=== PATIENT | male | born 1960 | race Caucasian/White ===

== ENCOUNTER 2018-09-23 09:57 | Emergency (ER) | payer OTHER ==
[2018-09-23 10:37] LABS: ADD MAN DIFF? NO
[2018-09-23 10:39] LABS: WHITE BLOOD COUNT 7.3 10^3/ul (4.8-10.8)
[2018-09-23 10:39] LABS: BASOPHIL # 0.1 10^3/ul (0.0-0.1); BASOPHILS % 1.1 % (0.0-2.0); EOSINOPHILS # 0.2 10^3/ul (0.0-0.5); HEMATOCRIT 37.7 % (42.0-52.0); HEMOGLOBIN 12.7 g/dl (14.0-18.0); LYMPHOCYTES # 1.1 10^3/ul (0.8-2.9); LYMPHOCYTES % 14.3 % (15.0-51.0); MEAN CORPUSCULAR HEMOGLOBIN 28.8 pg (29.0-33.0); MEAN CORPUSCULAR HGB CONC 33.7 g/dl (32.0-37.0); MEAN CORPUSCULAR VOLUME 85.5 fl (82.0-101.0); MEAN PLATELET VOLUME 11.4 fl (7.4-10.4); MONOCYTE # 0.6 10^3/ul (0.3-0.9); MONOCYTES % 7.5 % (0.0-11.0); NEUTROPHIL # 5.5 10^3/ul (1.6-7.5); NEUTROPHILS % 74.7 % (39.0-77.0); PLATELET COUNT 176 10^3/UL (140-415); RED BLOOD COUNT 4.41 10^6/ul (4.70-6.10); RED CELL DISTRIBUTION WIDTH 14.5 % (11.5-14.5)
[2018-09-23 10:56] LABS: ANION GAP 4 (5-13); BLOOD UREA NITROGEN 22 mg/dl (7-20); CALCIUM 9.2 mg/dl (8.4-10.2); CARBON DIOXIDE 28 mmol/L (21-31); CHLORIDE 106 mmol/L (97-110); CREATININE 0.95 mg/dl (0.61-1.24); Estimated GFR > 60 mL/min (>60); GLUCOSE 102 mg/dl (70-220); POTASSIUM 3.7 mmol/L (3.5-5.1); SODIUM 138 mmol/L (135-144)
[2018-09-23 11:55] LABS: TROPONIN-I < 0.012 ng/ml (0.000-0.120)
== END 2018-09-23 16:33 | disposition home or self-care (01) ==
LOC: E/R 09:57
DX: R42 Dizziness and giddiness (principal); I10 Essential (primary) hypertension
CPT/HCPCS: 80048; 84484; 85025; 93005; 99284-25

== ENCOUNTER 2018-10-01 07:11 | Emergency (ER) | payer OTHER ==
[2018-10-01] MEDS: IBUPROFEN 800 MG TAB PO (07:44)
== END 2018-10-01 08:54 | disposition home or self-care (01) ==
LOC: FTE 07:11
DX: R22.0 Localized swelling, mass and lump, head (principal); I10 Essential (primary) hypertension
CPT/HCPCS: 70486; 99284-25

== ENCOUNTER 2018-10-05 21:52 | Inpatient (IN) | payer OTHER ==
[2018-10-05 22:19] LABS: ADD MAN DIFF? NO
[2018-10-05 22:20] LABS: BASOPHIL # 0.1 10^3/ul (0.0-0.1); BASOPHILS % 0.6 % (0.0-2.0); EOSINOPHILS # 0.6 10^3/ul (0.0-0.5); EOSINOPHILS % 5.4 % (0.0-7.0); HEMATOCRIT 36.9 % (42.0-52.0); HEMOGLOBIN 12.6 g/dl (14.0-18.0); LYMPHOCYTES # 1.2 10^3/ul (0.8-2.9); LYMPHOCYTES % 11.9 % (15.0-51.0); MEAN CORPUSCULAR HEMOGLOBIN 29.3 pg (29.0-33.0); MEAN CORPUSCULAR HGB CONC 34.1 g/dl (32.0-37.0); MEAN CORPUSCULAR VOLUME 85.8 fl (82.0-101.0); MEAN PLATELET VOLUME 11.5 fl (7.4-10.4); MONOCYTE # 0.9 10^3/ul (0.3-0.9); MONOCYTES % 9.1 % (0.0-11.0); NEUTROPHIL # 7.4 10^3/ul (1.6-7.5); NEUTROPHILS % 72.7 % (39.0-77.0); PLATELET COUNT 178 10^3/UL (140-415); RED CELL DISTRIBUTION WIDTH 14.4 % (11.5-14.5)
[2018-10-05 22:20] LABS: WHITE BLOOD COUNT 10.2 10^3/ul (4.8-10.8)
[2018-10-05] MEDS: morphine 4 MG/ML VIAL IV (22:20)
[2018-10-05] MEDS: ONDANSETRON 4 MG INJ IV (22:20)
[2018-10-05] MEDS: ASPIRIN 325 MG TAB PO (22:21)
[2018-10-05] MEDS: NITROGLYCERIN 2% 1 GM OINT PKT TD (22:21)
[2018-10-05 22:40] LABS: ANION GAP 5 (5-13); BLOOD UREA NITROGEN 21 mg/dl (7-20); CARBON DIOXIDE 28 mmol/L (21-31); CHLORIDE 107 mmol/L (97-110); CREATININE 0.92 mg/dl (0.61-1.24); Estimated GFR > 60 mL/min (>60); GLUCOSE 110 mg/dl (70-220); POTASSIUM 3.4 mmol/L (3.5-5.1); SODIUM 140 mmol/L (135-144)
[2018-10-05 22:52] LABS: TROPONIN-I < 0.012 ng/ml (0.000-0.120)
[2018-10-05] MEDS ORDERED: ONDANSETRON 4 MG INJ IV (23:30)
[2018-10-06] MEDS ORDERED: ONDANSETRON 4 MG INJ IV (03:00)
[2018-10-06] MEDS ORDERED: NITROGLYCERIN (SL) 0.4 MG TAB SL (03:00)
[2018-10-06 05:22] LABS: ADD MAN DIFF? NO
[2018-10-06 05:34] LABS: BASOPHIL # 0.1 10^3/ul (0.0-0.1); BASOPHILS % 0.8 % (0.0-2.0); EOSINOPHILS # 0.7 10^3/ul (0.0-0.5); EOSINOPHILS % 8.7 % (0.0-7.0); HEMATOCRIT 33.5 % (42.0-52.0); HEMOGLOBIN 11.3 g/dl (14.0-18.0); LYMPHOCYTES # 1.4 10^3/ul (0.8-2.9); LYMPHOCYTES % 16.5 % (15.0-51.0); MEAN CORPUSCULAR HEMOGLOBIN 29.4 pg (29.0-33.0); MEAN CORPUSCULAR HGB CONC 33.7 g/dl (32.0-37.0); MEAN PLATELET VOLUME 11.8 fl (7.4-10.4); MONOCYTE # 0.7 10^3/ul (0.3-0.9); MONOCYTES % 8.8 % (0.0-11.0); NEUTROPHIL # 5.5 10^3/ul (1.6-7.5); NEUTROPHILS % 64.8 % (39.0-77.0); PLATELET COUNT 148 10^3/UL (140-415); RED BLOOD COUNT 3.85 10^6/ul (4.70-6.10); RED CELL DISTRIBUTION WIDTH 14.6 % (11.5-14.5)
[2018-10-06 05:34] LABS: WHITE BLOOD COUNT 8.4 10^3/ul (4.8-10.8)
[2018-10-06 05:46] LABS: HEMOGLOBIN A1C 4.6 % (0-5.9)
[2018-10-06 06:04] LABS: CREATINE KINASE 181 IU/L (23-200)
[2018-10-06 06:16] LABS: CK INDEX 1.8; TROPONIN-I < 0.012 ng/ml (0.000-0.120)
[2018-10-06 06:27] LABS: CK-MB 3.21 ng/ml (0.0-2.4)
[2018-10-06 07:51] LABS: ALANINE AMINOTRANSFERASE 43 IU/L (13-69); ALBUMIN 3.2 g/dl (3.3-4.9); ALBUMIN/GLOBULIN RATIO 1.28; ALKALINE PHOSPHATASE 58 IU/L (42-121); ANION GAP 7 (5-13); ASPARTATE AMINO TRANSFERASE 32 IU/L (15-46); BILIRUBIN,INDIRECT 0.7 mg/dl (0-1.1); BILIRUBIN,TOTAL 0.7 mg/dl (0.2-1.3); BLOOD UREA NITROGEN 20 mg/dl (7-20); CARBON DIOXIDE 31 mmol/L (21-31); CHLORIDE 106 mmol/L (97-110); CHOL/HDL RATIO 4.5 RATIO; CHOLESTEROL 126 mg/dl (100-200); CREATININE 0.87 mg/dl (0.61-1.24); Estimated GFR > 60 mL/min (>60); GLUCOSE 92 mg/dl (70-220); HDL CHOLESTEROL 28 mg/dl (28-71); LDL CHOLESTEROL,CALCULATED 79 mg/dl; POTASSIUM 3.8 mmol/L (3.5-5.1); SODIUM 144 mmol/L (135-144); TOTAL PROTEIN 5.7 g/dl (6.1-8.1); TRIGLYCERIDES 97 mg/dl (0-149)
[2018-10-06] MEDS: ENOXAPARIN 40 MG/0.4 ML SYG SC (09:00)
[2018-10-06] MEDS: ASPIRIN 81 MG TAB PO (09:00)
[2018-10-06 11:14] LABS: CREATINE KINASE 142 IU/L (23-200)
[2018-10-06 11:23] LABS: CK INDEX 1.9; TROPONIN-I < 0.012 ng/ml (0.000-0.120)
[2018-10-06 11:26] LABS: CK-MB 2.72 ng/ml (0.0-2.4)
[2018-10-06] MEDS: traMADol 50 MG TAB PO (12:31)
[2018-10-06] MEDS: ALBUTEROL/IPRATROPIUM (NEB) 3 ML AMP HHN (13:47)
[2018-10-06] MEDS ORDERED: UREA 40% CR 7OZ TOP (14:00)
[2018-10-06] MEDS: UREA 40% CR 7OZ TOP (21:50)
[2018-10-06] MEDS: morphine 2 MG INJ IV (22:00)
[2018-10-07 05:19] LABS: ADD MAN DIFF? NO
[2018-10-07 05:25] LABS: WHITE BLOOD COUNT 7.6 10^3/ul (4.8-10.8)
[2018-10-07 05:25] LABS: BASOPHIL # 0.1 10^3/ul (0.0-0.1); BASOPHILS % 0.7 % (0.0-2.0); EOSINOPHILS # 0.7 10^3/ul (0.0-0.5); EOSINOPHILS % 8.8 % (0.0-7.0); HEMATOCRIT 34.3 % (42.0-52.0); HEMOGLOBIN 11.5 g/dl (14.0-18.0); LYMPHOCYTES # 1.1 10^3/ul (0.8-2.9); LYMPHOCYTES % 14.5 % (15.0-51.0); MEAN CORPUSCULAR HEMOGLOBIN 29.3 pg (29.0-33.0); MEAN CORPUSCULAR HGB CONC 33.5 g/dl (32.0-37.0); MEAN CORPUSCULAR VOLUME 87.5 fl (82.0-101.0); MEAN PLATELET VOLUME 12.4 fl (7.4-10.4); MONOCYTE # 0.5 10^3/ul (0.3-0.9); MONOCYTES % 7.1 % (0.0-11.0); NEUTROPHIL # 5.2 10^3/ul (1.6-7.5); NEUTROPHILS % 68.4 % (39.0-77.0); PLATELET COUNT 134 10^3/UL (140-415); RED BLOOD COUNT 3.92 10^6/ul (4.70-6.10); RED CELL DISTRIBUTION WIDTH 14.6 % (11.5-14.5)
[2018-10-07 05:54] LABS: ANION GAP 5 (5-13); BLOOD UREA NITROGEN 27 mg/dl (7-20); CALCIUM 8.4 mg/dl (8.4-10.2); CARBON DIOXIDE 28 mmol/L (21-31); CHLORIDE 107 mmol/L (97-110); CREATININE 0.88 mg/dl (0.61-1.24); Estimated GFR > 60 mL/min (>60); GLUCOSE 124 mg/dl (70-220); MAGNESIUM 2.3 mg/dl (1.7-2.5); PHOSPHORUS 3.1 mg/dl (2.5-4.9); POTASSIUM 3.5 mmol/L (3.5-5.1); SODIUM 140 mmol/L (135-144)
[2018-10-07] MEDS: ASPIRIN 81 MG TAB PO (08:30)
[2018-10-07] MEDS: ENOXAPARIN 40 MG/0.4 ML SYG SC (08:31)
[2018-10-07] MEDS: UREA 40% CR 7OZ TOP ×2 (08:31→22:07)
[2018-10-07] MEDS: morphine 2 MG INJ IV ×3 (11:53→23:40)
[2018-10-07] MEDS: traMADol 50 MG TAB PO (22:07)
[2018-10-08] MEDS: morphine 2 MG INJ IV ×4 (03:47→22:14)
[2018-10-08] MEDS: ENOXAPARIN 40 MG/0.4 ML SYG SC (08:39)
[2018-10-08] MEDS: ASPIRIN 81 MG TAB PO (08:54)
[2018-10-08] MEDS: UREA 40% CR 7OZ TOP ×2 (13:34→21:00)
[2018-10-08] MEDS: QUETIAPINE 25 MG TAB PO ×2 (16:30→21:00)
[2018-10-08] MEDS: NIFEdipine (XL) 90 MG TAB PO (17:51)
[2018-10-09] MEDS: UREA 40% CR 7OZ TOP ×2 (08:47→21:07)
[2018-10-09] MEDS: ASPIRIN 81 MG TAB PO (08:47)
[2018-10-09] MEDS: traMADol 50 MG TAB PO ×2 (08:48→19:05)
[2018-10-09] MEDS: QUETIAPINE 25 MG TAB PO ×3 (08:48→21:00)
[2018-10-09] MEDS: NIFEdipine (XL) 90 MG TAB PO (08:48)
[2018-10-09] MEDS: ENOXAPARIN 40 MG/0.4 ML SYG SC (08:48)
[2018-10-09] MEDS: NACL 0.9% 3 ML SYG IV (08:49)
[2018-10-09] MEDS: GUAIFENESIN 20 MG/ML 5ML CUP PO (16:24)
[2018-10-10] MEDS: traMADol 50 MG TAB PO (07:54)
[2018-10-10] MEDS: ENOXAPARIN 40 MG/0.4 ML SYG SC (08:41)
[2018-10-10] MEDS: QUETIAPINE 25 MG TAB PO ×3 (08:41→21:00)
[2018-10-10] MEDS: ASPIRIN 81 MG TAB PO (08:49)
[2018-10-10] MEDS: NIFEdipine (XL) 90 MG TAB PO (08:49)
[2018-10-10] MEDS: UREA 40% CR 7OZ TOP ×2 (08:54→21:00)
[2018-10-11 07:15] LABS: ADD MAN DIFF? NO
[2018-10-11 07:17] LABS: BASOPHIL # 0.1 10^3/ul (0.0-0.1); EOSINOPHILS # 0.5 10^3/ul (0.0-0.5); EOSINOPHILS % 4.6 % (0.0-7.0); HEMATOCRIT 43.2 % (42.0-52.0); HEMOGLOBIN 14.9 g/dl (14.0-18.0); LYMPHOCYTES # 1.3 10^3/ul (0.8-2.9); LYMPHOCYTES % 13.1 % (15.0-51.0); MEAN CORPUSCULAR HEMOGLOBIN 28.8 pg (29.0-33.0); MEAN CORPUSCULAR HGB CONC 34.5 g/dl (32.0-37.0); MEAN CORPUSCULAR VOLUME 83.6 fl (82.0-101.0); MEAN PLATELET VOLUME 11.3 fl (7.4-10.4); MONOCYTE # 0.8 10^3/ul (0.3-0.9); MONOCYTES % 7.8 % (0.0-11.0); NEUTROPHIL # 7.3 10^3/ul (1.6-7.5); NEUTROPHILS % 72.5 % (39.0-77.0); PLATELET COUNT 236 10^3/UL (140-415); RED BLOOD COUNT 5.17 10^6/ul (4.70-6.10)
[2018-10-11 07:40] LABS: ANION GAP 13 (5-13); BLOOD UREA NITROGEN 47 mg/dl (7-20); CALCIUM 9.7 mg/dl (8.4-10.2); CARBON DIOXIDE 22 mmol/L (21-31); CHLORIDE 107 mmol/L (97-110); CREATININE 1.16 mg/dl (0.61-1.24); Estimated GFR > 60 mL/min (>60); GLUCOSE 104 mg/dl (70-220); SODIUM 142 mmol/L (135-144)
[2018-10-11] MEDS: QUETIAPINE 25 MG TAB PO ×2 (09:00→13:00)
[2018-10-11] MEDS: ENOXAPARIN 40 MG/0.4 ML SYG SC (09:00)
[2018-10-11] MEDS: UREA 40% CR 7OZ TOP (09:00)
[2018-10-11] MEDS: NIFEdipine (XL) 90 MG TAB PO (09:36)
[2018-10-11] MEDS: ASPIRIN 81 MG TAB PO (09:36)
== END 2018-10-11 16:30 | disposition left against medical advice (07) | DRG 313 ==
LOC: 6WM 23:19 → 5EC 10-11 00:44 → E/R 21:52 → 5EC 10-08 19:53
DX: R07.9 Chest pain, unspecified (principal); F30.9 Manic episode, unspecified; I10 Essential (primary) hypertension; Z59.0 Homelessness; M79.10 Myalgia, unspecified site
CPT/HCPCS: 36415; 71045; 80048; 80053; 80061; 82550; 82553; 83036; 83735; 84100; 84443; 84484; 85025; 93005; 93306; 94664; 96374; 96375; 97116; 97161; 99285-25; G0378

== ENCOUNTER 2018-10-30 11:31 | Emergency (ER) | payer OTHER ==
[2018-10-30 13:26] LABS: ADD MAN DIFF? NO
[2018-10-30 13:30] LABS: WHITE BLOOD COUNT 7.2 10^3/ul (4.8-10.8)
[2018-10-30 13:30] LABS: BASOPHIL # 0.1 10^3/ul (0.0-0.1); EOSINOPHILS # 0.4 10^3/ul (0.0-0.5); EOSINOPHILS % 5.3 % (0.0-7.0); HEMATOCRIT 38.3 % (42.0-52.0); HEMOGLOBIN 12.6 g/dl (14.0-18.0); LYMPHOCYTES % 14.1 % (15.0-51.0); MEAN CORPUSCULAR HEMOGLOBIN 29.2 pg (29.0-33.0); MEAN CORPUSCULAR HGB CONC 32.9 g/dl (32.0-37.0); MEAN CORPUSCULAR VOLUME 88.9 fl (82.0-101.0); MEAN PLATELET VOLUME 11.4 fl (7.4-10.4); MONOCYTE # 0.5 10^3/ul (0.3-0.9); MONOCYTES % 7.4 % (0.0-11.0); NEUTROPHIL # 5.1 10^3/ul (1.6-7.5); NEUTROPHILS % 71.9 % (39.0-77.0); PLATELET COUNT 172 10^3/UL (140-415); RED BLOOD COUNT 4.31 10^6/ul (4.70-6.10); RED CELL DISTRIBUTION WIDTH 14.3 % (11.5-14.5)
[2018-10-30 13:49] LABS: ANION GAP 7 (5-13); BLOOD UREA NITROGEN 18 mg/dl (7-20); CALCIUM 9.3 mg/dl (8.4-10.2); CARBON DIOXIDE 28 mmol/L (21-31); CHLORIDE 104 mmol/L (97-110); Estimated GFR > 60 mL/min (>60); GLUCOSE 87 mg/dl (70-220); POTASSIUM 3.9 mmol/L (3.5-5.1); SODIUM 139 mmol/L (135-144)
[2018-10-30 14:01] LABS: TROPONIN-I < 0.012 ng/ml (0.000-0.120)
[2018-10-30] MEDS: IBUPROFEN 600 MG TAB PO (14:50)
== END 2018-10-30 14:55 | disposition home or self-care (01) ==
LOC: E/R 11:31
DX: R07.9 Chest pain, unspecified (principal); I10 Essential (primary) hypertension; F17.210 Nicotine dependence, cigarettes, uncomplicated
CPT/HCPCS: 36415; 71045; 80048; 84484; 85025; 93005; 99285-25

== ENCOUNTER 2018-11-04 05:09 | Emergency (ER) | payer OTHER ==
[2018-11-04 07:16] LABS: ADD MAN DIFF? NO
[2018-11-04 07:20] LABS: WHITE BLOOD COUNT 8.1 10^3/ul (4.8-10.8)
[2018-11-04 07:20] LABS: BASOPHIL # 0.1 10^3/ul (0.0-0.1); BASOPHILS % 0.9 % (0.0-2.0); EOSINOPHILS # 0.4 10^3/ul (0.0-0.5); EOSINOPHILS % 4.3 % (0.0-7.0); HEMATOCRIT 39.6 % (42.0-52.0); HEMOGLOBIN 13.2 g/dl (14.0-18.0); LYMPHOCYTES # 1.2 10^3/ul (0.8-2.9); LYMPHOCYTES % 14.5 % (15.0-51.0); MEAN CORPUSCULAR HEMOGLOBIN 29.1 pg (29.0-33.0); MEAN CORPUSCULAR HGB CONC 33.3 g/dl (32.0-37.0); MEAN CORPUSCULAR VOLUME 87.2 fl (82.0-101.0); MEAN PLATELET VOLUME 11.6 fl (7.4-10.4); MONOCYTE # 0.6 10^3/ul (0.3-0.9); MONOCYTES % 7.3 % (0.0-11.0); NEUTROPHIL # 5.9 10^3/ul (1.6-7.5); NEUTROPHILS % 72.6 % (39.0-77.0); PLATELET COUNT 178 10^3/UL (140-415); RED BLOOD COUNT 4.54 10^6/ul (4.70-6.10); RED CELL DISTRIBUTION WIDTH 13.9 % (11.5-14.5)
[2018-11-04 07:23] LABS: ADD UMIC NO; UR ASCORBIC ACID 40 mg/dL (NEGATIVE); UR BILIRUBIN (Dip) NEGATIVE (NEGATIVE); UR BLOOD (Dip) NEGATIVE (NEGATIVE); UR CLARITY CLEAR (CLEAR); UR COLOR YELLOW (YELLOW); UR GLUCOSE (Dip) NEGATIVE (NEGATIVE); UR KETONES (Dip) 1+ mg/dL (NEGATIVE); UR LEUKOCYTE ESTERASE (Dip) NEGATIVE Leu/ul (NEGATIVE); UR NITRITE (Dip) NEGATIVE (NEGATIVE); UR SPECIFIC GRAVITY (Dip) 1.013 (1.003-1.030); UR TOTAL PROTEIN (Dip) NEGATIVE (NEGATIVE); UR UROBILINOGEN (Dip) NEGATIVE (NEGATIVE)
[2018-11-04 07:35] LABS: ALANINE AMINOTRANSFERASE 49 IU/L (13-69); ALBUMIN 4.4 g/dl (3.3-4.9); ALBUMIN/GLOBULIN RATIO 1.25; ALKALINE PHOSPHATASE 68 IU/L (42-121); ANION GAP 10 (5-13); ASPARTATE AMINO TRANSFERASE 49 IU/L (15-46); BILIRUBIN,INDIRECT 1.2 mg/dl (0-1.1); BILIRUBIN,TOTAL 1.2 mg/dl (0.2-1.3); BLOOD UREA NITROGEN 21 mg/dl (7-20); CALCIUM 9.7 mg/dl (8.4-10.2); CARBON DIOXIDE 28 mmol/L (21-31); CHLORIDE 103 mmol/L (97-110); CREATININE 0.93 mg/dl (0.61-1.24); Estimated GFR > 60 mL/min (>60); GLUCOSE 97 mg/dl (70-220); LIPASE 74 U/L (23-300); POTASSIUM 3.8 mmol/L (3.5-5.1); SODIUM 141 mmol/L (135-144); TOTAL PROTEIN 7.9 g/dl (6.1-8.1)
[2018-11-04] MEDS: ACETAMINOPHEN 500 MG TAB PO (07:40)
== END 2018-11-04 09:03 | disposition home or self-care (01) ==
LOC: E/R 05:09
DX: R10.9 Unspecified abdominal pain (principal); I10 Essential (primary) hypertension
CPT/HCPCS: 74176; 80053; 81003; 83690; 85025; 99284-25

== ENCOUNTER 2018-11-25 12:58 | Emergency (ER) | payer SELFPAY, OTHER | END 2018-11-25 13:00 | disposition left against medical advice (07) | LOC: FTE 12:58 | DX: Z53.21 Procedure and treatment not carried out due to patient leaving prior to being seen by health care provider (principal) ==

== ENCOUNTER 2018-12-20 14:26 | Emergency (ER) | payer OTHER | END 2018-12-20 14:38 | disposition home or self-care (01) | LOC: E/R 14:38 | DX: M54.6 Pain in thoracic spine (principal); J06.9 Acute upper respiratory infection, unspecified; I10 Essential (primary) hypertension; F17.210 Nicotine dependence, cigarettes, uncomplicated | CPT/HCPCS: 99283; Z7502 ==